=== PATIENT | female | born 1970 | race Caucasian/White ===

== ENCOUNTER → 2024-09-13 15:16 | Outpatient (REF) | payer BC, SELFPAY | LOC: WDC 15:16 | PROVIDERS: ATTENDING PHYSICIAN Family Medicine | DX: Z12.31 Encounter for screening mammogram for malignant neoplasm of breast (principal) | CPT/HCPCS: 77063; 77067 ==

== ENCOUNTER → 2024-09-17 09:47 | Outpatient (REF) | payer BC, SELFPAY | LOC: WDC 09:47 | PROVIDERS: ATTENDING PHYSICIAN Family Medicine | DX: R92.8 Other abnormal and inconclusive findings on diagnostic imaging of breast (principal) | CPT/HCPCS: 76642 ==

== ENCOUNTER 2025-04-04 06:21 | Day surgery (SDC) | payer BC, SELFPAY | END 2025-04-04 14:31 | disposition home or self-care (01) | LOC: GI 06:21 | PROVIDERS: ATTENDING PHYSICIAN Internal Medicine; FAMILY PHYSICIAN Family Medicine | DX: Z12.11 Encounter for screening for malignant neoplasm of colon (principal); D12.8 Benign neoplasm of rectum; K51.40 Inflammatory polyps of colon without complications | CPT/HCPCS: 45385; 45380; 88305 ==

== ENCOUNTER → 2025-05-26 11:07 | Outpatient (REF) | payer BC, SELFPAY | LOC: MRI 3T 11:07 | PROVIDERS: ATTENDING PHYSICIAN Obstetrics & Gynecology; FAMILY PHYSICIAN Family Medicine | DX: Z91.89 Other specified personal risk factors, not elsewhere classified (principal) | CPT/HCPCS: 77049; A9585 ==